=== PATIENT | female | born 1995 | race Caucasian/White ===

== ENCOUNTER 2016-07-29 23:17 | Emergency (ER) | payer OTHER ==
[~2016-07-29] VITALS: Ht 157.5 cm; Wt 59.0 kg
[2016-07-29 23:30] VITALS: BP 124/88
[2016-07-30] MEDS ORDERED: ALBUTEROL 90 MCG/ACT 8GM HFA INHALER INH ONE
== END 2016-07-30 00:41 | disposition home or self-care (01) ==
LOC: EDBD 23:17 → M ED 07-30 00:05
DX: J45.21 Mild intermittent asthma with (acute) exacerbation (principal)